=== PATIENT | female | born 1950 | race Caucasian/White ===

== ENCOUNTER 2017-01-18 08:18 | Inpatient (IN) | payer BC, OTHER ==
[~2017-01-18] VITALS: Ht 157.5 cm; Wt 53.5 kg
[2017-01-18 08:18] VITALS: BP_SYST 154
[~2017-01-18 08:18] MED LIST: ESCI20TA PO; LISI-600 PO
--- NOTE | 2017-01-18 08:18 | NUR ---
BROUGHT BACK TO BED #7 AND TRIAGED. REPORT GIVEN TO LAUREN
--- NOTE | 2017-01-18 08:25 | NUR ---
Pt presents to Ed c/o L buttock pain radiating down leg worsening since Wednesday.pt reports pain w/ambulation.Pt has slow steady gait. H/O HTN and hyperlipidemia. Pt denies CP or SOB at this time.
--- NOTE | 2017-01-18 08:26 | NUR ---
ER at bedside examining patient.
[2017-01-18] MEDS ORDERED: KETOROLAC TROMETHAMINE 60 MG/2 ML VIAL IM ONE (09:00)
--- NOTE | 2017-01-18 09:00 | NUR ---
Patient transported to radiology via WHEELCHAIR, accompanied by RAD STAFF.
--- NOTE | 2017-01-18 09:10 | NUR ---
PT RETURNED FROM RAD DEPT TOLERATED WELL.
--- NOTE | 2017-01-18 09:25 | NUR ---
[place] robles in [facility] - 01/18/17 at 0953 by GENET PT
--- NOTE | 2017-01-18 09:25 | NUR ---
PT REPORTS PAIN RESOLVING. DR. RITCHIE AT BEDSIDE FOR POC DISCUSSION,
--- NOTE | 2017-01-18 10:07 | NUR ---
DR RITCHIE AT BEDSIDE SPEAKING WITH PT.
--- NOTE | 2017-01-18 10:15 | NUR ---
PT UNABLE TO AMBULATE W/O PAIN. PT TO BE ADMITTED.
--- NOTE | 2017-01-18 10:25 | NUR ---
# 20 gauge angiocath placed to LAC. Use of asceptic technique. Opsite placed over site. Blood return noted. Blood for lab drawn from site. Flushed with 10 cc of normal saline. No evidence of infiltration noted. Patient tolerated well.
[2017-01-18 10:30] LABS: BASOPHILS # (AUTO) 0.1 K/uL (0.0-0.2); BASOPHILS % (AUTO) 1.3 % (0.0-2.0); EOSINOPHILS # (AUTO) 0.1 K/uL (0.0-0.4); EOSINOPHILS % (AUTO) 1.1 % (0.0-4.0); HEMATOCRIT 40.7 % (36-48); HEMOGLOBIN 13.6 g/dL (12.0-16.0); MEAN CORPUSCULAR HEMOGLOBIN 30 pg (27-31); MEAN CORPUSCULAR HGB CONC 33 % (32-36); MEAN CORPUSCULAR VOLUME 90 fL (79.0-98.0); MONOCYTES # (AUTO) 0.3 K/uL (0.0-1.0); NEUTROPHILS % (AUTO) 84.6 % (40.0-70.0); PLATELET COUNT (AUTO) 194 K/uL (130-430); RED BLOOD CELL COUNT(AUTO) 4.55 MIL/uL (4.2-6.2); RED CELL DISTRIBUTION WIDTH 12.7 % (9.0-15.0); WHITE BLOOD COUNT (AUTO) 9.5 K/uL (4.8-10.8)
[2017-01-18 10:46] LABS: CALCIUM 9.4 mg/dL (8.4-11.0); CREATININE 0.92 mg/dL (0.55-1.30); POTASSIUM 3.9 mmol/L (3.5-5.1)
[2017-01-18 10:51] LABS: ALBUMIN 4.3 g/dL (3.4-4.8); TOTAL BILIRUBIN 0.5 mg/dL (0.0-1.0); TOTAL PROTEIN, SERUM 7.3 g/dL (6.4-8.3)
--- NOTE | 2017-01-18 10:56 | NUR ---
Admission Note Received patient from ER with diagnosis of lumbar reticulopathy . Initial Plan of Care discussed-patient verbalized understanding. Oriented to room, call light, pain management and safety.
--- NOTE | 2017-01-18 11:00 | NUR ---
Patient will be admitted to care of . Admitted to MED/SURG unit. Will go to room 104B. Belongings list completed. Summary report printed. Report will be given at bedside.
[2017-01-18 11:02] VITALS: BP_SYST 133
--- NOTE | 2017-01-18 11:17 | NUR ---
PATIENT RECEIVED AWAKE, ALERT AND ORIENTED X4, STATES PAIN UPON MOVEMENT BUT WHEN SHE RELAXES IT FEELS BETTER, EDUCATED THE PATIENT AUTOMOBILE RENTAL AGENT LIGHT SYSTEM AND TO CALL FOR ANY ASSISTANCE, PATIENT VERBALIZED UNDERSTANDING, CALL LIGHT PLACED IN THE PATIENT'S HAND, FALL AND ASPIRATION PRECAUTIONS IN PLACE, BED ALARM ON, BED CLOSE TO NURSE'S STATION, DR ZARAGOZA AT THE BEDSIDE ASSESSING THE PATIENT, WILL FOLLOW UP WITH NEW ORDERS.
[2017-01-18] MEDS ORDERED: ONDANSETRON HCL 4 MG/2 ML VIAL IVP PRN (11:30)
[2017-01-18] MEDS ORDERED: ACETAMINOPHEN 325 MG TABLET PO PRN (11:30)
--- NOTE | 2017-01-18 11:30 | NUR ---
CALLED MRI REGARDING ORDER FOR LUMBAR MRI WITHOUT CONTRAST, WAS INFORMED THAT MRI HAS A FULL SCHEDULE TODAY AND THAT IT MAY HAVE TO BE TOMORROW, INFORMED DR ZARAGOZA, STATED OK TO DO IT TOMORROW, WILL FOLLOW UP NEEDED.
[2017-01-18] MEDS: MORPHINE 2 MG/ML INJ. SYRINGE IVP PRN (14:10)
--- NOTE | 2017-01-18 14:10 | NUR ---
RN ROUNDS PATIENT RESTING IN BED, AWAKE, STATES 6/10 LOWER BACK PAIN, EDUCATED THE PATIENT ON PAIN MEDICATION AND POTENTIAL SIDE EFFECTS, PATIENT VERBALIZED UNDERSTANDING AND TOLERATED WELL, IV SITE IS PATENT WITH NO SIGNS OF INFILTRATION, BED IN LOWEST POSITION, BED ALARM ON, BED CLOSE TO NURSE'S STATION, THREE SIDE RAILS UP, FALL AND ASPIRATION PRECAUTIONS IN PLACE, CALL LIGHT PLACED IN THE PATIENT'S HAND.
[2017-01-18 15:28] VITALS: BP_SYST 138
--- NOTE | 2017-01-18 15:47 | NUR ---
RN ROUNDS PATIENT RESTING IN BED, STATES PAIN IS UNDER CONTROL AT THIS TIME, ASSISTED THE PATIENT TO FILL OUT MRI QUESTIONNAIRE, NO QUESTIONS AT THIS TIME REGARDING MRI PROCEDURE, NO OTHER NEEDS AT THIS TIME, BED IN LOWEST POSITION, THREE SIDE RAILS UP, BED ALARM ON, BED CLOSE TO NURSE'S STATION, FALL AND ASPIRATION PRECAUTIONS IN PLACE, CALL LIGHT NEXT TO THE PATIENT'S HAND, WILL CONTINUE TO MONITOR.
--- NOTE | 2017-01-18 15:59 | NUR ---
CONSULT REASON FOR CONSULT : LOWER CHASE PAIN PERSON WHO WAS NOTIFIED: [place] CONSULTING PHYSICIAN: FITO DOCTOR ORDERED: NIK
--- NOTE | 2017-01-18 16:45 | NUR ---
PATIENT OFF THE UNIT FOR MRI, STABLE CONDITION.
--- NOTE | 2017-01-18 17:22 | NUR ---
RN ROUNDS PATIENT BACK ON THE UNIT FROM MRI, STABLE CONDITION, STATES MILD PAIN LEVEL BUT STATES SHE WOULD LIKE TO RELAX AND NOT HAVE PAIN MEDICATION YET, WILL CONTINUE TO MONITOR, NO OTHER NEEDS AT THIS TIME, BED IN LOWEST POSITION, THREE SIDE RAILS UP, BED ALARM ON, BED CLOSE TO NURSE'S STATION, FALL AND ASPIRATION PRECAUTIONS IN PLACE, CALL LIGHT IN THE PATIENT'S HAND.
--- NOTE | 2017-01-18 18:49 | NUR ---
CLOSING NOTES PATIENT RESTING IN BED, EYES CLOSED, BREATHING IS EVEN AND UNLABORED, NO SIGNS OF DISTRESS, ALL NEEDS MET, BED IN LOWEST POSITION, THREE SIDE RAILS UP, BED ALARM ON, BED CLOSE TO NURSE'S STATION, FALL AND ASPIRATION PRECAUTIONS IN PLACE, WILL ENDORSE REPORT TO NOC SHIFT NURSE.
--- NOTE | 2017-01-18 19:20 | NUR ---
initial nursing notes: Patient awake in bed. Patient has a beside commode. Patient has an IV access on the left AC. Patient denies of having pain.
[2017-01-18 19:37] VITALS: BP_SYST 136
[2017-01-18] MEDS: MORPHINE 4 MG/ML INJ. SYRINGE IVP PRN (20:29)
--- NOTE | 2017-01-18 21:20 | NUR ---
nursing rounds: Patient received pain medication for her back pain 06/06. Pain medication was effective.
--- NOTE | 2017-01-18 23:20 | NUR ---
nursing rounds: Patient ambulates to the bathroom with assist. Patient has no episode of falls and no injuries.
[2017-01-19] VITALS: BP_SYST 138
--- NOTE | 2017-01-19 01:20 | NUR ---
nursing rounds: Patient asleep in bed. Patient has no shortness of breath.
--- NOTE | 2017-01-19 03:20 | NUR ---
nursing rounds: Patient sleeping in bed. Patient has no respiratory distress.
[2017-01-19 04:00] VITALS: BP_SYST 134
[2017-01-19] MEDS: MORPHINE 4 MG/ML INJ. SYRINGE IVP PRN ×2 (04:29→09:50)
--- NOTE | 2017-01-19 05:06 | NUR ---
nursing rounds: Patient received another dose of pain medication for her back pain 07/06. Pain medication was effective.
--- NOTE | 2017-01-19 07:39 | NUR ---
closing nursing notes: Patient is awake, alert and oriented X 4. Patient is in no acute respiratory distress. No episodes of fall and no injuries throughout the graphics coordinator. Provided nursing report to incoming morning shift nurses, JONNIE Pineda, at patient's bedside.
--- NOTE | 2017-01-19 07:45 | NUR ---
RN ROUNDS PATIENT RESTING IN BED, AWAKE, ALERT AND ORIENTED X4, STATES PAIN IS UNDER CONTROL AT THIS TIME IF SHE DOES NOT MOVE TOO MUCH, EDUCATED THE PATIENT ON PAIN MANAGEMENT, PATIENT VERBALIZED UNDERSTANDING, ASSESSMENT COMPLETE, EDUCATED THE PATIENT DRIVER LICENSE EXAMINER LIGHT SYSTEM AND TO CALL FOR ANY ASSISTANCE, PATIENT VERBALIZED UNDERSTANDING, NO OTHER NEEDS AT THIS TIME, BED IN LOWEST POSITION, THREE SIDE RAILS UP, BED ALARM ON, BED CLOSE TO NURSE'S STATION, FALL AND ASPIRATION PRECAUTIONS IN PLACE.
[2017-01-19 08:00] VITALS: BP_SYST 148
--- NOTE | 2017-01-19 09:36 | NUR ---
Nutrition Update Alberto Scale 16 noted. Pt admitted for lumbar radiculopathy. Diet: 2 gm Na BMI: 21.6 kg/m2 RD to follow per nutrition care standards.
--- NOTE | 2017-01-19 09:50 | NUR ---
RN ROUNDS PATIENT COMPLAINING OF SEVERE PAIN AT THIS TIME, EDUCATED ON PAIN MEDICATION AND POTENTIAL SIDE EFFECTS, PATIENT VERBALIZED UNDERSTANDING, IV SITE IS PATENT NO INFILTRATION, BED IN LOWEST POSITION, THREE SIDE RAILS UP, BED ALARM ON, BED CLOSE TO NURSE'S STATION, FALL AND ASPIRATION PRECAUTIONS IN PLACE, CALL LIGHT NEXT TO THE PATIENT'S HAND.
--- NOTE | 2017-01-19 10:00 | NUR ---
NOTIFIED DR ZARAGOZA THAT RADHA LOPEZ IS ON THAT SUSPENSION LIST. DR ZARAGOZA IS AWARE. CHARGE NURSE ARTURO IS ALSO AWARE.
--- NOTE | 2017-01-19 11:20 | NUR ---
RN ROUNDS PATIENT OUT OF BED TO RESTROOM, RE EDUCATED THE PATIENT TO CALL FOR ASSISTANCE, PATIENT VERBALIZED UNDERSTANDING, ASSISTED BACK TO BED, STATES MILD AND TOLERABLE PAIN LEVEL, BED IN LOWEST POSITION, THREE SIDE RAILS UP, BED ALARM ON, BED CLOSE TO NURSE'S STATION, FALL AND ASPIRATION PRECAUTIONS IN PLACE, CALL LIGHT IN THE PATIENTS' HAND.
[2017-01-19 12:00] VITALS: BP_SYST 139
--- NOTE | 2017-01-19 13:01 | NUR ---
RN ROUNDS PATIENT RESTING IN BED, EYES CLOSED, BREATHING IS EVEN AND UNLABORED NO SIGNS OF DISTRESS, BED IN LOWEST POSITION, THREE SIDE RAILS UP, BED ALARM ON, BED CLOSE TO NURSE'S STATION, FALL AND ASPIRATION PRECAUTIONS IN PLACE, CALL LIGHT NEXT TO THE PATIENT'S HAND, WILL CONTINUE TO MONITOR.
--- NOTE | 2017-01-19 14:42 | NUR ---
RN ROUNDS PATIENT RESTING IN BED, DENIES PAIN, TALKING WITH FAMILY AT THE BEDSIDE, NO OTHER NEEDS AT THIS TIME, BED IN LOWEST POSITION, THREE SIDE RAILS UP, BED ALARM ON, BED CLOSE TO NURSE'S STATION, FALL AND ASPIRATION PRECAUTIONS IN PLACE, CALL LIGHT NEXT TO THE PATIENT'S HAND, WILL CONTINUE TO MONITOR.
[2017-01-19 15:32] VITALS: BP_SYST 133
[2017-01-19] MEDS: MORPHINE 2 MG/ML INJ. SYRINGE IVP PRN ×2 (15:40→21:24)
--- NOTE | 2017-01-19 15:40 | NUR ---
RN ROUNDS PATIENT RESTING IN BED, AWAKE, STATES MODERATE PAIN LEVEL AT THIS TIME, EDUCATED THE PATIENT ON PAIN MEDICATION AND POTENTIAL SIDE EFFECTS, PATIENT VERBALIZED UNDERSTANDING AND TOLERATED WELL, IV SITE IS PATENT WITH NO SIGNS OF INFILTRATION, BED IN LOWEST POSITION, BED ALARM ON, BED CLOSE TO NURSE'S STATION, CALL LIGHT IN THE PATIENT'S HAND, FALL AND ASPIRATION PRECAUTIONS IN PLACE , WILL CONTINUE TO MONITOR.
--- NOTE | 2017-01-19 16:35 | NUR ---
PT WALKING IN [place] WAY SHE REFUSE TO USE THE WALKER
--- NOTE | 2017-01-19 18:38 | NUR ---
CLOSING NOTES PATIENT RESTING IN BED, AWAKE, DENIES PAIN, ALL NEEDS MET, WILL ENDORSE REPORT TO NOC SHIFT NURSE, BED IN LOWEST POSITION, THREE SIDE RAILS UP, BED ALARM ON, FALL AND ASPIRATION PRECAUTIONS IN PLACE, CALL LIGHT NEXT TO THE PATIENT'S HAND.
--- NOTE | 2017-01-19 19:30 | NUR ---
INITIAL ASSESSMENT: RECEIVE PT IN BED, RESTING, AWAKE, ALERT AND ORIENTED X4, DENIES ANY PAIN OR DISCOMFORT, STATES PAIN IS UNDER CONTROL AT THIS TIME IF SHE DOES NOT MOVE TOO MUCH, EDUCATED THE PATIENT ON PAIN MANAGEMENT, PATIENT VERBALIZED UNDERSTANDING, BREATHING EVEN AND NON LABORED IN ROOM AIR, CHEST CLEAR, ABDOMEN SOFT AND NON DISTENDED, ACTIVE BOWEL SOUND THROUGHOUT ABDOMEN, ASSESSMENT COMPLETE, EDUCATED THE PATIENT LUG BREAKER AND WIRE PULLER LIGHT SYSTEM AND TO CALL FOR ANY ASSISTANCE, PATIENT VERBALIZED UNDERSTANDING, NO OTHER NEEDS AT THIS TIME, BED IN LOWEST POSITION, THREE SIDE RAILS UP, BED ALARM ON, BED CLOSE TO NURSE'S STATION, FALL AND ASPIRATION PRECAUTIONS IN PLACE. WILL CONTINUE TO MONITOR.
[2017-01-19 19:46] VITALS: BP_SYST 131
[2017-01-19] MEDS ORDERED: DIPHENHYDRAMINE INJ 50 MG/ML VIAL IVP PRN (21:15)
--- NOTE | 2017-01-19 21:21 | NUR ---
PAIN, PAIN MEDICATION: PATIENT RESTING IN BED, AWAKE, BREATHING EVEN AND NON LABORED, IN ROOM AIR, LOWER BACK PAIN 03/06 AT THIS TIME, ADMINISTERED MORPHINE 2 MG IVP, EDUCATED THE PATIENT ON PAIN MEDICATION AND POTENTIAL SIDE EFFECTS, PATIENT VERBALIZED UNDERSTANDING AND TOLERATED WELL, IV SITE IS PATENT WITH NO SIGNS OF INFILTRATION, BED IN LOWEST POSITION, BED ALARM ON, BED CLOSE TO NURSE'S STATION, CALL LIGHT IN THE PATIENT'S HAND, FALL AND ASPIRATION PRECAUTIONS IN PLACE , WILL CONTINUE TO MONITOR.
--- NOTE | 2017-01-19 23:21 | NUR ---
ITCHINESS/BENADRYL: PT AWAKE AND STATED ITCHING ALL OVER BODY, ADMINISTERED BENADRYL 25 MG IVP, WILL REASSESS, VITAL STABLE, BREATHING EVEN AND NON LABORED WITH ROOM AIR, DENIES SNY PAIN OR DISCOMFORT, CALL LIGHT WITH IN REACH, WILL CONTINUE TO MONITOR.
[2017-01-20] VITALS: BP_SYST 125
--- NOTE | 2017-01-20 01:33 | NUR ---
RN ROUND: PATIENT SLEEPING, EASILY AWAKE, BREATHING EVEN AND NON LABORED, IN ROOM AIR, NO NOTED PAIN AND DISTRESS, IV SITE IS PATENT WITH NO SIGNS OF INFILTRATION, BED IN LOWEST POSITION, BED ALARM ON, BED CLOSE TO NURSE'S STATION, CALL LIGHT IN THE PATIENT'S HAND, FALL AND ASPIRATION PRECAUTIONS IN PLACE , WILL CONTINUE TO MONITOR.
[2017-01-20 04:00] VITALS: BP_SYST 130
--- NOTE | 2017-01-20 05:07 | NUR ---
HYGIENE /ROUND: PATIENT SLEEPING, EASILY AWAKE, BREATHING EVEN AND NON LABORED, IN ROOM AIR, NO NOTED PAIN AND DISTRESS, IV SITE IS PATENT WITH NO SIGNS OF INFILTRATION, BED IN LOWEST POSITION, BED ALARM ON, BED CLOSE TO NURSE'S STATION, CALL LIGHT IN REACH, FALL AND ASPIRATION PRECAUTIONS IN PLACE, WILL CONTINUE TO MONITOR. PT SPONGE PROVIDED, WASHED HERSELF.
[2017-01-20] MEDS ORDERED: oxyCODONE HCL 5 MG TABLET PO SCH (07:00)
--- NOTE | 2017-01-20 07:03 | NUR ---
CLOSING NOTE: PATIENT SLEEPING, EASILY AWAKE, BREATHING EVEN AND NON LABORED, IN ROOM AIR, NO NOTED PAIN AND DISTRESS, IV SITE IS PATENT WITH NO SIGNS OF INFILTRATION, BED IN LOWEST POSITION, BED ALARM ON, BED CLOSE TO NURSE'S STATION, CALL LIGHT IN REACH, FALL AND ASPIRATION PRECAUTIONS IN PLACE, WILL CONTINUE TO CARE TRANSFER TO MS UNIT.
--- NOTE | 2017-01-20 07:49 | NUR ---
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
[2017-01-20 07:54] VITALS: BP_SYST 108
[2017-01-20] MEDS ORDERED: MAGNESIUM CITRATE 300 ML ORAL SOLUTION PO ONE (08:15)
--- NOTE | 2017-01-20 09:30 | NUR ---
RN ROUNDS PATIENT RESTING IN BED, DENIES PAIN, MADE AWARE OF DISCHARGE HOME, NO OTHER NEEDS AT THIS TIME, BED IN LOWEST POSITION, THREE SIDE RAILS UP, BED ALARM ON, BED CLOSE TO NURSE'S STATION, FALL AND ASPIRATION PRECAUTIONS IN PLACE, CALL LIGHT IN THE PATIENT'S HAND.
[2017-01-20 09:34] VITALS: BP_SYST 108
--- NOTE | 2017-01-20 10:09 | NUR ---
HCP/PA: Called JOSELINE Cordova made her aware of discharge follow up with pain and neurologist x1 week.
--- NOTE | 2017-01-20 11:20 | NUR ---
D/C Patient Patient given medication reconciliation form and D/C instructions. Exit Care provided. Patient verbalized understanding. MD discussed with patient the results and treatment provided. Ambulatory with steady gait for discharge to home. Patient in stable condition, ID band removed. IV catheter removed, intact and dressing applied, no active bleeding. Rx of NEURONIN, FLEXERIL given. Patient educated on pain management. All belongings sent with patient.
--- NOTE | 2017-01-20 14:19 | NUR ---
PT NOTES CHART REVIEWED, BUT UNABLE TO SEE PATIENT IN MORNING D/T BEING PREPARED FOR D/C FROM [facility]. PVEx1 Addendum: 01/20/17 at 1530 by Gracia Dougherty PT PHYSICAL THERAPY CO-SIGN The Physical Therapy Progress Notes documented by Sas Sql Developer have been reviewed. Reviewed/Co-Signed by: Gracia Dougherty PT Documentation Done by: ISAI LOCK EXCHANGE FLOOR MANAGER
--- NOTE | 2017-01-21 14:02 | NUR ---
Discharge Follow Up Phone Call MEDICAL RECORD CONSULTANT phoned patient, . Patient stated she was much improved but still had some pain. She was grocery shopping and requested a call back after 12:30 with the phone numbers of the pain specialist and neurologist, as she had lost them. MEDICAL RECORD CONSULTANT phoned HCP/PA JOSELINE Cordova, , and discussed patient's follow up. Patient has a follow up appointment with Dr Izabel Dong on February 01 at 3:15pm. Patient may not be following up with Dr Perez. MEDICAL RECORD CONSULTANT phoned patient at 2pm and left a voicemail message as to the information above along with contact numbers for Data Migration Consultant, JOSELINE Cordova, Dr Dong, Dr Perez. Data Migration Consultant will remain available upon request.
== END 2017-01-20 11:20 | disposition home or self-care (01) | DRG 552 ==
LOC: SED 08:18 → STU 10:17 → SMU 10:44
PROVIDERS: ADMIT Internal Medicine Hospice and Palliative Medicine; ATTEND Internal Medicine Hospice and Palliative Medicine
DX: M47.26 Other spondylosis with radiculopathy, lumbar region (principal); I10 Essential (primary) hypertension; G89.4 Chronic pain syndrome; F32.9 Major depressive disorder, single episode, unspecified; M47.9 Spondylosis, unspecified; M48.06 Spinal stenosis, lumbar region; M54.32 Sciatica, left side
CPT/HCPCS: 36415; 72110; 72148; 80053; 85025; 96372; 99285; J1200; J1885; J2270; J2405

== ENCOUNTER 2018-01-08 16:58 | Emergency (ER) | payer OTHER ==
[~2018-01-08] VITALS: Ht 157.5 cm; Wt 52.2 kg
[2018-01-08 17:04] VITALS: BP_SYST 121
[2018-01-08] MEDS ORDERED: KETOROLAC TROMETHAMINE 60 MG/2 ML VIAL IM ONE (18:15)
[2018-01-08 18:45] VITALS: BP_SYST 118
== END 2018-01-08 18:45 | disposition home or self-care (01) ==
LOC: SED 16:58
DX: S66.303A Unspecified injury of extensor muscle, fascia and tendon of left middle finger at wrist and hand level, initial encounter (principal); I10 Essential (primary) hypertension; E78.00 Pure hypercholesterolemia, unspecified; Z90.89 Acquired absence of other organs; Z98.51 Tubal ligation status; X58.XXXA Exposure to other specified factors, initial encounter; Y93.89 Activity, other specified; Y92.89 Other specified places as the place of occurrence of the external cause; Y99.8 Other external cause status
CPT/HCPCS: 29130; 73140; 96372; 99284; J1885

== ENCOUNTER 2019-04-10 15:40 | Emergency (ER) | payer BC, OTHER ==
[~2019-04-10] VITALS: Ht 157.5 cm; Wt 54.4 kg
[2019-04-10 16:05] VITALS: BP_SYST 129
--- NOTE | 2019-04-10 17:02 | NUR ---
Patient to ER bed 7 to gown for evaluation. Side rails up. Report given to Cristina CRISTINA.
--- NOTE | 2019-04-10 17:05 | NUR ---
Note travis in EDM - 04/10/19 at 1715 by REGINA Pt brought by self, A&Ox4, pt presents to ER with intermittent episode of generalized weakness and L arm numbness, pt denies pain or any symptoms at this time, pt ambulatory , respirations even and unlabored , no N/V/D or constipation at this time.
--- NOTE | 2019-04-10 17:15 | NUR ---
Dr Flores at bedside examining patient
[2019-04-10 17:24] LABS: BASOPHILS % (AUTO) 0.9 % (0.0-2.0); EOSINOPHILS # (AUTO) 0.1 K/uL (0.0-0.4); EOSINOPHILS % (AUTO) 2.4 % (0.0-4.0); HEMATOCRIT 35.9 % (36-48); HEMOGLOBIN 12.3 g/dL (12.0-16.0); LYMPHOCYTES # (AUTO) 1.1 K/uL (1.0-5.5); LYMPHOCYTES % (AUTO) 20.6 % (20.5-51.5); MEAN CORPUSCULAR HEMOGLOBIN 32 pg (27-31); MEAN CORPUSCULAR HGB CONC 34 % (32-36); MEAN CORPUSCULAR VOLUME 93 fL (79.0-98.0); MONOCYTES # (AUTO) 0.3 K/uL (0.0-1.0); MONOCYTES % (AUTO) 5.7 % (1.7-9.3); NEUTROPHILS # (AUTO) 3.7 K/uL (1.8-7.7); NEUTROPHILS % (AUTO) 70.4 % (40.0-70.0); PLATELET COUNT (AUTO) 210 K/uL (130-430); RED BLOOD CELL COUNT(AUTO) 3.84 MIL/uL (4.2-6.2); RED CELL DISTRIBUTION WIDTH 12.4 % (9.0-15.0); WHITE BLOOD COUNT (AUTO) 5.2 K/uL (4.8-10.8)
[2019-04-10 17:39] LABS: INR 1.1 (0.8-1.2); PROTHROMBIN TIME 10.8 SECS (9.5-12.5)
[2019-04-10 17:45] LABS: ALANINE AMINOTRANSFERASE 22 U/L (12-78); ALBUMIN 3.7 g/dL (3.4-4.8); ASPARTATE AMINOTRANSFERASE 17 U/L (10-37); CALCIUM 8.9 mg/dL (8.4-11.0); CHLORIDE 103 mmol/L (98-107); GLUCOSE 90 mg/dL (70-99); POTASSIUM 4.3 mmol/L (3.5-5.1); SODIUM SERUM 136 mmol/L (136-145); TOTAL BILIRUBIN 0.2 mg/dL (0.0-1.0); UREA NITROGEN, BLOOD 21 mg/dL (8-21)
[2019-04-10 17:50] LABS: ANION GAP 10 (5-15)
[2019-04-10 17:51] LABS: GFR AFRICAN AMERICAN 71 mL/min (>90)
[2019-04-10 18:20] VITALS: BP_SYST 129
--- NOTE | 2019-04-10 18:20 | NUR ---
Patient given written and verbal discharge instructions and verbalizes understanding. ER MD discussed with patient the results and treatment provided. Patient in stable condition. ID arm band removed. No Rx given. Patient educated on pain management and to follow up with PMD. Pain Scale 0/10. Opportunity for questions provided and answered. Medication side effect fact sheet provided.
== END 2019-04-10 18:20 | disposition home or self-care (01) ==
LOC: SED 15:40
DX: R53.1 Weakness (principal); E78.00 Pure hypercholesterolemia, unspecified; F32.9 Major depressive disorder, single episode, unspecified; Z90.89 Acquired absence of other organs; Z98.51 Tubal ligation status; Z79.899 Other long term (current) drug therapy; Z87.891 Personal history of nicotine dependence
CPT/HCPCS: 36415; 70450-TC; 71045; 80053; 81002; 84484; 85025; 85610-TC; 85730-TC; 93005; 99284